=== PATIENT | female | born 1960 | race Two or more races ===

== ENCOUNTER 2020-01-20 08:09 | Day surgery (SDC) | payer OTHER | END 2020-01-20 12:20 | disposition home or self-care (01) | LOC: AMB-ENDOS 08:09 → ADM 14:00 | PROVIDERS: ATTEND Colon & Rectal Surgery | DX: K62.89 Other specified diseases of anus and rectum (principal); K64.0 First degree hemorrhoids; Z12.11 Encounter for screening for malignant neoplasm of colon ==

== ENCOUNTER 2020-02-24 05:50 | Day surgery (SDC) | payer OTHER | END 2020-02-24 13:15 | disposition home or self-care (01) | LOC: AMB-ENDOS 05:50 | PROVIDERS: ATTEND Colon & Rectal Surgery | DX: D13.1 Benign neoplasm of stomach (principal); K44.9 Diaphragmatic hernia without obstruction or gangrene ==